=== PATIENT | female | born 1970 | race Caucasian/White ===

== ENCOUNTER 2020-04-05 09:15 | Outpatient (CLI) | payer OTHER, SELFPAY ==
--- NOTE | ~2020-04-05 | MM_ITS ---
EXAMINATION: MM screening [facility] BI w andrew HISTORY: Screening mammogram TECHNIQUE: Craniocaudal and mediolateral oblique 3-D tomosynthesis images were obtained and synthetic 2-D images were generated. CAD analysis was submitted and interpreted. COMPARISON: 03/29/2019, 03/22/2018, 09/30/2015 BREAST PARENCHYMAL COMPOSITION: There are scattered areas of fibroglandular density. FINDINGS: RIGHT BREAST: An asymmetry is again seen in the posterior third of the inner right breast on the cran iocaudal view which is more prominent on the current examination when compared to priors. LEFT BREAST: There is no evidence of suspicious mass, calcification, or architectural distortion to s uggest malignancy. There has been no significant interval change. IMPRESSION: 1. Right breast asymmetry on the craniocaudal view. 2. Additional mammographic views and possible breast ultrasound are recommended. BI-RADS Category 0: Incomplete: Needs additional imaging evaluation. Reviewed, dictated and finalized at location A. IMPRESSION: 1. Right breast asymmetry on the craniocaudal view. 2. Additional mammographic views and possible breast ultrasound are recommended . BI-RADS Category 0: Incomplete: Needs additional imaging evaluation.
== END 2020-04-05 09:16 | disposition home or self-care (01) ==
LOC: ANHIMG 09:23
PROVIDERS: PCP Family Medicine Sports Medicine; Visit Provider Obstetrics & Gynecology
DX: Z12.31 Encounter for screening mammogram for malignant neoplasm of breast (principal)
CPT/HCPCS: 77063; 77067

== ENCOUNTER → 2020-04-26 09:15 | Outpatient (CLI) | payer OTHER, SELFPAY ==
--- NOTE | ~2020-04-26 | MMUS_ITS ---
EXAMINATION: MM diagnostic mammo unilat RT, US breast RT limited HISTORY: Mammographic asymmetry in posterior third of inner right breast on 04/05/2020 screening crani ocaudal view TECHNIQUE: Additional 3-D tomosynthesis images of the right breast were performed and synthetic 2-D i mages were generated. CAD analysis was submitted and interpreted. High resolution upper inner quadran t and lower inner quadrant right breast breast ultrasound was performed. COMPARISON: 04/05/2020 bilateral digital screening mammogram BREAST PARENCHYMAL COMPOSITION: There are scattered areas of fibroglandular density. FINDINGS: MAMMOGRAPHIC FINDINGS: Asymmetric densities in an approximately 3 square cm area are again confirmed in the posterior half o f the inner right breast on craniocaudal projection. Ultrasound correlation for the upper inner and l ower inner quadrants of the right breast was performed. ULTRASOUND: 1:00 5 cm from nipple: There is a focal small irregular hypoechoic antiparallel area with posterior s hadowing, which is suspicious for a small possible malignancy. Ultrasound-guided biopsy is recommende d at this site. IMPRESSION: 1. Focal hypoechoic shadowing irregular antiparallel small focus at 1:00 5 cm from nipple, suspicious for possible malignancy 2. Ultrasound-guided biopsy is recommended at right breast 1:00 5 cm from nipple BI-RADS category 4, suspicious findings. Dr. Hagan telephoned the report and ultrasound guided biopsy on 04/26/2020 at 1025 hours to Nathalie's vo icemail at Dr. Deepa Linn's office Reviewed, dictated and finalized at location A. IMPRESSION: 1. Focal hypoechoic shadowing irregular antiparallel small focus at 1:00 5 cm f rom nipple, suspicious for possible malignancy 2. Ultrasound-guided biopsy is recommended at right breast 1:00 5 cm from nippl e BI-RADS category 4, suspicious findings. Dr. Hagan telephoned the report and ultrasound guided biopsy on 04/26/2020 at 10 25 hours to Nathalie's voicemail at Dr. Deepa Linn's office
== END ==
PROVIDERS: PCP Family Medicine Sports Medicine; Visit Provider Obstetrics & Gynecology
DX: R92.8 Other abnormal and inconclusive findings on diagnostic imaging of breast (principal)
CPT/HCPCS: 76642; 77065

== ENCOUNTER 2020-05-08 09:20 | Outpatient (CLI) | payer OTHER, SELFPAY ==
--- NOTE | ~2020-05-08 | US_ITS ---
US breast RT limited 05/08/2020 10:20 Indication: Focal abnormality identified on recent ultrasound. Biopsy requested. Procedure: High-resolution ultrasound of the right breast. Dr. Seaman was present during the examinatio n. Comparison: 04/26/2020 Findings: There is focal shadowing in the right breast at 1:00, 5 cm from the nipple without discrete mass. This is seen on longitudinal images and is not confirmed on transverse images. No discrete mas s identified for biopsy purposes. Findings discussed with the patient. Impression: 1: No discrete mass identified for biopsy purposes. Focal shadowing located at 1:00, 5 cm from the ni pple as seen on longitudinal images only. Short-term follow-up ultrasound in 6 months recommended. BI-RADS CATEGORY 3-PROBABLY BENIGN FINDING RECOMMENDATION: 6 month follow up recommended. Reviewed, dictated and finalized at location A. D COOK Impression: 1: No discrete mass identified for biopsy purposes. Focal shadowing located at 1:00, 5 cm from the nipple as seen on longitudinal images only. Short-term foll ow-up ultrasound in 6 months recommended. BI-RADS CATEGORY 3-PROBABLY BENIGN FINDING RECOMMENDATION: 6 month follow up recommended.
== END 2020-05-08 09:21 | disposition home or self-care (01) ==
LOC: ANHIMG 09:24
PROVIDERS: PCP Family Medicine Sports Medicine; Visit Provider Obstetrics & Gynecology
DX: N63.10 Unspecified lump in the right breast, unspecified quadrant (principal)
CPT/HCPCS: 76642

== ENCOUNTER 2020-06-04 02:10 | Outpatient (CLI) | payer OTHER, SELFPAY ==
[2020-06-04 19:16] LABS: SARS-CoV-2 RNA PCR Negative
== END 2020-06-04 02:11 | disposition home or self-care (01) ==
LOC: ANHCOVIDDT 02:10
PROVIDERS: PCP Family Medicine Sports Medicine; Visit Provider Obstetrics & Gynecology
DX: Z01.812 Encounter for preprocedural laboratory examination (principal); Z20.828 Contact with and (suspected) exposure to other viral communicable diseases
CPT/HCPCS: 87635; C9803; U0003

== ENCOUNTER 2020-06-04 13:28 | Outpatient (CLI) | payer OTHER, SELFPAY ==
--- NOTE | 2020-06-04 13:30 | ECG_ITS ---
Measurements Intervals [place] Rate: 61 P: -11 IA: 129 QRS: 37 QRSD: 85 T: 57 QT: 429 QTc: 434 Interpretive Statements SINUS RHYTHM NORMAL ECG Electronically Signed On 06-04-2020 15:56:49 STUDIO OPERATIONS MANAGER by Homar Mota D.O.
[2020-06-04 14:58] LABS: Basophils Percent Auto 0.5 % (0.2-1.2); Eosinophils Absolute Auto 0.1 K/mm3 (0-0.3); Eosinophils Percent Auto 1.1 % (0-4.4); Hematocrit 42.4 % (37.0-47.0); Hemoglobin 14.3 g/dL (12.0-15.0); Immature Granulocyte Absolute 0.02 K/mm3 (0.00-0.031); Immature Granulocyte Percent A 0.2 % (0-0.5); Lymphocytes Absolute Auto 2.76 K/mm3 (0.9-3.2); Lymphocytes Percent Auto 31.4 % (18.3-44.2); Mean Corpuscular HGB Conc 33.7 g/dl (32-36); Mean Corpuscular Hemoglobin 32.3 pg (26-34); Mean Corpuscular Volume 95.7 fl (80-100); Mean Platelet Volume 9.7 fl (7.4-10.4); Monocytes Absolute Auto 0.6 K/mm3 (0.1-0.6); Monocytes Percent Auto 6.9 % (2.6-8.5); Neutrophils Absolute Auto 5.3 K/mm3 (1.3-6.7); Neutrophils Percent Auto 59.9 % (45.5-73.1); Platelet Count Result 257 k/mm3 (150-375); Red Blood Count 4.43 M/mm3 (4.2-5.4); Red Cell Distribution Width 12.6 % (11.5-14.5); White Blood Count 8.8 K/mm3 (4.5-10.0)
== END 2020-06-04 13:29 | disposition home or self-care (01) ==
LOC: ANHSURGERY 13:30
PROVIDERS: PCP Family Medicine Sports Medicine; Visit Provider Obstetrics & Gynecology
DX: Z01.812 Encounter for preprocedural laboratory examination (principal); F17.210 Nicotine dependence, cigarettes, uncomplicated
CPT/HCPCS: 36415; 85025; 86850; 86900; 86901; 93005

== ENCOUNTER 2020-06-07 01:33 | Day surgery (SDC) | payer OTHER, SELFPAY ==
[2020-06-03 13:57] VITALS: BMI 29.7
--- NOTE | 2020-06-05 10:00 | PM.IMHP ---
H&P: HPI History of Present Illness Date/Time: 06/05/20 10:00 Chief complaint: Dyspareunia, uterine fibroids, pelvic pain enlarge Narrative: Shiv St is a 49 year old female who is admitted for robotic total vaginal hysterectomy and left salpingo-oophorectomy as well as right salpingectomy. She has pain and discomfort and dyspareunia. She has a huge fibroid on the left she is having clear risks and benefits reviewed including but not exclusive of , aspiration pneumonia bleeding, transfusion, perforation injury to bowel, bladder, ureters, or other internal organs. She voiced good understanding. She had all questions answered. She asked to proceed Review of Systems Review of Systems: All systems reviewed & are unremarkable except as noted in HPI and below PMFSH Social History Social History Smoking packs per day: 1.5 Smoking cigarettes per day: 30.0 Years smoked: 20 Smoking pack-years: 30.00 Smoking status: Current every day smoker Tobacco type: cigarettes Alcohol intake: current Drinks per week: 10 Substance use: never Additional living arrangements comments: Spiritual care concerns: No Meds Home Medications and Allergies Home Medications Medication Instructions Recorded Confirmed Type ascorbic acid (vitamin C) 1 g PO DAILY 06/03/20 06/03/20 History calcium carbonate-vitamin D3 1 tablet PO DAILY 06/03/20 06/03/20 History [Calcium with Vitamin D] fluticasone propionate [Flonase 1 spray INTRANASAL DAILY 06/03/20 06/03/20 History Allergy Relief] herbal drugs [Water Pill] 1 tablet PO DAILY 06/03/20 06/03/20 History lactobacillus combination no.8 3,000 mmu cells PO DAILY 06/03/20 06/03/20 History [Adult Probiotic] loratadine [Claritin] 10 mg PO DAILY 06/03/20 06/03/20 History multivitamin [Multiple Vitamin] 1 tablet PO DAILY 06/03/20 06/03/20 History Allergies Allergy/AdvReac Type Severity Reaction Status Date / Time Sulfa (Sulfonamide Allergy Severe Hives Unverified 06/03/20 13:51 Antibiotics) Exam Const: General: no acute distress Eyes: General: appearance normal, both eyes and all related structures Neck: Neck: supple and no JVD Thyroid: thyroid normal Resp: Effort & Inspection: normal respiratory effort Auscultation: clear to auscultation bilaterally Cardio: Rate: regular rate Rhythm: regular rhythm GI: Inspection: non-distended GI Palp: Yes Soft to palpation, No Tenderness to palpation present (GI) and No Guarding due to palpation present (GI) Auscultation: normal bowel sounds : General: Yes bladder normal to inspection External Female Exam: normal external appearance Speculum Exam - Vagina: normal appearance of the vagina Speculum Exam - Cervix: normal appearance of the cervix Bimanual exam- vagina & uterus: enlarged Bimanual Exam- Adnexa, other: Adnexal mass present on the left Skin: General skin exam: no rashes or lesions noted Extrem: General: normal to inspection and no edema Psych: Mental Status: mental status grossly normal Affect: normal affect Assessment and Plan Additional Plan impression: Enlarged uterus pelvic pain / dyspareunia / uterine fibroids Plan: Robotic total vaginal hysterectomy / left salpingo-oophorectomy / right salpingectomy
[2020-06-07] VITALS (17 sets, daily range): BP systolic 109–150; BP diastolic 46–89; PULSE 52–72; RESP 13–20; TEMP 36.6–37.6; O2SAT 97–100
--- NOTE | 2020-06-07 06:47 | WPDHPUPDATE1 ---
History and Physical Update Update Date/Time: 06/07/20 06:47 History and Physical has been reviewed, including an updated exam of the patient. There are NO changes in the patient's condition. Risks, benefits, and alternatives have been discussed and questions answered. Patient agrees to proceed with procedure.
--- NOTE | 2020-06-07 08:19 | WPDANESEPPF ---
Anes - Initial Pre Proc Eval Procedure: Operation Date: 06/07/20 09:30 Proposed Procedures p Robotic Assisted Total Vaginal Hysterectomy With Left Salpingo-oophorectomy, And Right Salpingectomy - Martni Campbell MD Date/Time: 06/07/20 08:19 Surgeon: Martin Campbell MD Pre Op Diagnosis: Dyspareunia, uterine fibroids, pelvic pain enlarge Patient Data Age: 49 Gender: F Height: 5 ft 5 in Weight: 81 kg Allergies Allergy/AdvReac Type Severity Reaction Status Date / Time Sulfa (Sulfonamide Allergy Severe Hives Unverified 06/07/20 07:34 Antibiotics) Home Medications Medication Instructions Recorded Confirmed Type ascorbic acid (vitamin C) 1 g PO DAILY 06/03/20 06/07/20 History calcium carbonate-vitamin D3 1 tablet PO DAILY 06/03/20 06/07/20 History [Calcium with Vitamin D] fluticasone propionate [Flonase 1 spray INTRANASAL DAILY 06/03/20 06/07/20 History Allergy Relief] herbal drugs [Water Pill] 1 tablet PO DAILY 06/03/20 06/07/20 History lactobacillus combination no.8 3,000 mmu cells PO DAILY 06/03/20 06/07/20 History [Adult Probiotic] loratadine [Claritin] 10 mg PO DAILY 06/03/20 06/07/20 History multivitamin [Multiple Vitamin] 1 tablet PO DAILY 06/03/20 06/07/20 History hydrocodone-acetaminophen [[place]] 1 tablet PO Q4H PRN #30 tablet 06/07/20 Rx Patient hx anesthesia problems: post op nausea/vomiting Family hx anesthesia problems: post op nausea/vomiting PMFSH Social History Social History Smoking packs per day: 1.5 Smoking cigarettes per day: 30.0 Years smoked: 20 Smoking pack-years: 30.00 Smoking status: Current every day smoker Tobacco type: cigarettes Alcohol intake: current Drinks per week: 10 Alcohol use details: 10 BEERS/WEEK Substance use: never Living arrangements: with family Additional living arrangements comments: Spiritual care concerns: No Anes - Eval Final PreProcedure Day of Procedure 06/07/20 08:19 Patient weight: overweight Heart: regular rate and rhythm Lungs: decreased breath sounds Airway: Mallampati scale class II Neurological: alert and oriented Last oral intake: >/= 8 hours ASA classification: III Emergent: no Anesthetic plan: proceed Anesthesia type and monitoring: general ETT and standard monitoring Informed Consent: The patient's anesthetic plan and its attendant risks and benefits were discussed with the patient/family/POA. Questions were solicited and answers provided to the satisfaction of the patient/family/POA.
[2020-06-07] MEDS: LACTATED RINGERS 1,000 ML 30 ML IV CONT ×3 (08:20→11:42)
[2020-06-07] MEDS: KETOROLAC 15 MG/ML VIAL (*BKC) IV PUSH (08:29)
[2020-06-07] MEDS: ACETAMINOPHEN 500 MG TABLET 1000 MG PO (08:30)
[2020-06-07] MEDS: SCOPOLAMINE 1.5 MG PATCH TRANSDERM (08:31)
--- NOTE | 2020-06-07 10:56 | P.OP_ITS ---
Procedure Note - Detailed Date of procedure: 06/07/20 Pre-op diagnosis: Dyspareunia, uterine fibroids, pelvic pain enlarge Surgeon: Martin Campbell MD Postop diagnosis: Dyspareunia/uterine fibroids/pelvic pain/left ovarian cyst Procedure: Robotic total vaginal hysterectomy/left salpingo-oophorectomy/right salpingectomy EBL: 100cc Anesthesia: General endotracheal Findings: Markedly enlarged uterus. Normal-appearing right ovary and tube. Left ovarian cyst Complication: None Description of procedure: The patient was prepped and draped in the normal sterile fashion placed in the dorsal lithotomy position. Under excellent general trach anesthesia weighted speculum placed in posterior fornix of vagina. Anterior lip of the cervix grasped with single-tooth tenaculum. Uterus sounded to 8cm. Serial dilatation with fragmented dilators performed followed passage of the 8. MADINA and the 3. And half cold cup a 16 [place] catheter was placed in the bladder. The remaining instruments removed. Gloves were changed. A supraumbilical incision was made. The Veress needle passed in the abdomen. The 8mm trocar advanced the abdomen downside visualized. No injury seen. The patient was placed in Trendelenburg. Right and left lateral quadrant incision made the 8mm trocars advanced under direct visualization assuring no injury. Right upper quadrant incision made and a 10mm trocar advanced under direct visualization assuring no injury. The robot was docked Attention was turned to the procedure. The left round ligament was clamped, burned, cut. Anterior bladder flap was formed by sharply dissecting this away and pushing it caudally to the opposite round ligament which was clamped, b urned, cut. Next to remove the left ovary and tube the infundibulopelvic structure on the left was skeletonized. This was clamped, burned, cut. This is brought to the level of previously cut round ligament. Removing the right fallopian tube this was sharply dissected using cautery was clamped, burned, cut. The utero-ovarian ligament on the right to conserve the right ovary was clamped, burned, cut. This was brought to the level of previously cut round ligament. The left cardinal and broad ligaments were then serially skeletonized. These were clamped, burned, cut and brought down to the level of the uterine vessels on the left. Uterine vessels were large and tortuous. These were individually clamped, burned, cut. In like fashion the right cardinal and broad ligaments were serially skeletonized. These were clamped, burned, cut and brought down the lateral edge of the uterus until the uterine vessels could be seen. These were then clamped, cut and good blanching the uterus was seen. Colpotomy incision was made and the uterus tubes and left ovary removed through the vagina. Blood loss estimated [id number] at that point. The vagina was closed with continuous running 0V lock from lateral edge to lateral edge and back to the midline. Irrigation undertaken until clear. Hemostasis was assured. The robot was undocked. The gas removed from the abdomen. The trocar sites removed and the incisions closed with 4 O Monocryl and glue. The patient was awakened. She went to recovery in satisfactory condition. All sponge, needle, instrument counts were correct. There were no immediate complications
[2020-06-07] MEDS: fentaNYL CITRATE INJ (*CRX) 100 MCG/2 ML VIAL 25 MCG IV PUSH ×2 (12:00→12:02)
--- NOTE | 2020-06-07 12:30 | PC.NURSE ---
PT arrived on unit via bed and was taken to room 280. PT accompanied by significant other. PT introductions made and plan of care discussed per post op menagerie superintendent surgery, pain management, daily care activities. PT oriented to room and surrounding area. PT verbalized understanding of such care
[2020-06-07] MEDS: NICOTINE (*PBKC) 21 MG PATCH 1 PATCH TRANSDERM (13:00)
[2020-06-07] MEDS: HYDROcodone/acetaminophen (*CRX) 5-325 MG TABLET 1 TAB PO ×3 (13:34→20:21)
[2020-06-07] MEDS: SIMETHICONE 80 MG TAB.CHEW PO ×4 (13:34→23:55)
[2020-06-07] MEDS: KETOROLAC 30 MG/ML VIAL (*BKC) IV PUSH (13:35)
[2020-06-07] MEDS: DOCUSATE SODIUM 100 MG CAPSULE PO (17:27)
[2020-06-07] MEDS: IBUPROFEN 600 MG TABLET PO (20:20)
[2020-06-07] MEDS: HYDROcodone/acetaminophen (*CRX) 10-325 MG TABLET 1 TAB PO (23:55)
[2020-06-08] MEDS: SIMETHICONE 80 MG TAB.CHEW PO ×2 (04:27→09:41)
[2020-06-08] MEDS: IBUPROFEN 600 MG TABLET PO (04:27)
[2020-06-08 04:30] VITALS: BP 134/70; PULSE 65; RESP 16; TEMP 36.6; O2SAT 99
[2020-06-08] MEDS: BISACODYL 10 MG SUPPOSITORY (05:00)
[2020-06-08 05:21] LABS: Basophils Percent Auto 0.2 % (0.2-1.2); Eosinophils Percent Auto 0.1 % (0-4.4); Hematocrit 33.7 % (37.0-47.0); Hemoglobin 11.7 g/dL (12.0-15.0); Immature Granulocyte Absolute 0.04 K/mm3 (0.00-0.031); Immature Granulocyte Percent A 0.3 % (0-0.5); Lymphocytes Absolute Auto 2.22 K/mm3 (0.9-3.2); Lymphocytes Percent Auto 15.4 % (18.3-44.2); Mean Corpuscular HGB Conc 34.7 g/dl (32-36); Mean Corpuscular Hemoglobin 31.8 pg (26-34); Mean Corpuscular Volume 91.6 fl (80-100); Mean Platelet Volume 10.5 fl (7.4-10.4); Monocytes Absolute Auto 0.8 K/mm3 (0.1-0.6); Monocytes Percent Auto 5.7 % (2.6-8.5); Neutrophils Absolute Auto 11.3 K/mm3 (1.3-6.7); Neutrophils Percent Auto 78.3 % (45.5-73.1); Platelet Count Result 202 k/mm3 (150-375); Red Blood Count 3.68 M/mm3 (4.2-5.4); Red Cell Distribution Width 11.8 % (11.5-14.5); White Blood Count 14.5 K/mm3 (4.5-10.0)
[2020-06-08 09:30] VITALS: PULSE 65; RESP 16; O2SAT 96
[2020-06-08] MEDS: HYDROcodone/acetaminophen (*CRX) 10-325 MG TABLET 1 TAB PO (09:40)
[2020-06-08] MEDS: DOCUSATE SODIUM 100 MG CAPSULE PO (09:41)
[2020-06-08] MEDS: ENOXAPARIN 40 MG/0.4 ML SYRINGE SUB-Q (09:41)
[2020-06-08 10:03] VITALS: BP 104/62; PULSE 65; RESP 14; TEMP 36.7; O2SAT 96
--- NOTE | 2020-06-08 10:21 | PM.DS ---
DS: Admitting Diagnosis Admitting Diagnosis Admitting Diagnosis: Dyspareunia, uterine fibroids, pelvic pain enlarge DS: Summary Hospital Course Hospital Course: Shiv St was admitted after robotic assisted total laparoscopic hysterectomy, left salpingo-oophorectomy and right salpingectomy for dyspareunia, uterine fibroids, and pelvic pain. The above procedure was performed with no complications. She is doing well post op. She states her pain is well controlled with PO medications. She reports minimal bleeding. She is ambulating up to the chair. Her muller catheter was removed. She is tolerating PO without N/V. She reports passing flatus. Status at Discharge Overall status at discharge: patient is progressing back to baseline Time Spent with Patient Time attestation: Total time spent providing and/or coordinating discharge services: Time spent: Less than 30 minutes Exam Const: General: comfortable and no acute distress Limitations: no limitations Resp: Effort & Inspection: normal respiratory effort Auscultation: clear to auscultation bilaterally Cardio: Rate: regular rate Rhythm: regular rhythm GI: Inspection: non-distended GI Palp: Yes Soft to palpation, Yes Tenderness to palpation present (GI) (milder tenderness to deep palpation) and No Guarding due to palpation present (GI) Auscultation: normal bowel sounds Other: incisions C/D/I covered with dermabond Urinary Catheter: Urinary Catheter: urine clear Skin: General skin exam: normal color Extrem: General: normal to inspection Psych: Mental Status: mental status grossly normal Affect: normal affect DS: Data Data Completed and Pending Pending studies at discharge: Pending at discharge 06/07/20 10:36 Surgical [PTH] Routine Labs on day of discharge: Labs from last 24 hours 06/08/20 04:36 WBC 14.5 H RBC 3.68 L Hgb 11.7 L Hct 33.7 L MCV 91.6 MCH 31.8 MCHC 34.7 RDW 11.8 Plt Count 202 MPV 10.5 H Immature Gran % (Auto) 0.3 Neut % (Auto) 78.3 H Lymph % (Auto) 15.4 L [place] % (Auto) 5.7 Eos % (Auto) 0.1 Baso % (Auto) 0.2 Lymph # (Auto) 2.22 [place] # (Auto) 0.8 H Eos # (Auto) 0.0 Baso # (Auto) 0.0 Abs Immat Gran (auto) 0.04 H Absolute Neuts (auto) 11.3 H Absolute Nucleated RBC 0.0 Nucleated RBC % 0.0 Discharge Plan Discharge Patient Disposition: Home, Self-Care Discharge Instructions: Remove the Scopolamine patch that was placed behind your ear in 72 hours or less. Wash your hands after touching. Patient Instructions: How to Use an Incentive Spirometer (DC), Laparoscopic Hysterectomy (DC) Stand Alone Forms: General Discharge Instructions Follow-up/Referrals: Martin Campbell MD [Physician] - Discharge Medications: New hydrocodone-acetaminophen [[place]] 5-325 mg tablet 1 tablet PO Q4H PRN (Reason: pain) Qty: 30 RF: 0 nicotine [Nicoderm CQ] 21 mg/24 hr Patch 24 Hour 1 patch transdermal QAM Qty: 30 RF: 0 Continued multivitamin Tablet 1 tablet PO DAILY RF: 0 ascorbic acid (vitamin C) 1,000 mg Tablet 1 g PO DAILY RF: 0 calcium carbonate-vitamin D3 [Calcium with Vitamin D] 600 mg(1,500mg) -400 unit Tablet 1 tablet PO DAILY RF: 0 Adult Probiotic 3 billion cell Capsule 3,000 mmu cells PO DAILY RF: 0 herbal drugs Tablet 1 tablet PO DAILY RF: 0 fluticasone propionate [Flonase Allergy Relief] 50 mcg/actuation Avenue,Suspension 1 spray INTRANASAL DAILY RF: 0 loratadine [Claritin] 10 mg Tablet 10 mg PO DAILY RF: 0
== END 2020-06-08 11:35 | disposition home or self-care (01) ==
LOC: ANHSURGERY 12:10 → ANHOB2 13:15
PROVIDERS: PCP Family Medicine Sports Medicine; Visit Provider Obstetrics & Gynecology
PROC: (CPT 58552; principal; 2020-06-07 09:30)
DX: N94.10 Unspecified dyspareunia (principal); R10.2 Pelvic and perineal pain; D25.1 Intramural leiomyoma of uterus; N83.02 Follicular cyst of left ovary; F17.210 Nicotine dependence, cigarettes, uncomplicated
CPT/HCPCS: 58552; S2900; 36415; 85025; 86850; 86900; 86901; 87635; 88307; 93005; 99199; A9270; C9803; J0330; J1100; J1650; J1885; J2250; J2405; J2704; J3010; J7030; J7120; U0003

== ENCOUNTER 2020-11-13 13:29 | Outpatient (CLI) | payer OTHER, SELFPAY ==
--- NOTE | ~2020-11-13 | US_ITS ---
EXAMINATION: US breast RT limited HISTORY: Six-month follow-up for probably benign right breast mass TECHNIQUE: Limited right breast ultrasound is performed. COMPARISON: 05/08/2020, 04/26/2020, 04/05/2020 FINDINGS: There is no evidence of focal abnormal cystic or solid mass in the vicinity of the mass que stioned on prior ultrasound examination. IMPRESSION: No persistent sonographically detected mass in the upper outer breast. Routine screening mammography is recommended. BI-RADS Category 1: Negative Reviewed, dictated and finalized at location A.
== END 2020-11-13 13:30 | disposition home or self-care (01) ==
PROVIDERS: PCP Family Medicine Sports Medicine; Visit Provider Obstetrics & Gynecology
DX: R92.8 Other abnormal and inconclusive findings on diagnostic imaging of breast (principal)
CPT/HCPCS: 76642

== ENCOUNTER 2021-08-19 08:33 | Emergency (ER) | payer OTHER, SELFPAY ==
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
[2021-08-19 08:40] VITALS: BP 148/99; PULSE 71; RESP 18; TEMP 36.8; O2SAT 100
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
[2021-08-19 09:48] VITALS: BP 141/93; PULSE 87; RESP 18; O2SAT 100
[2021-08-19 10:07] VITALS: BP 132/92; PULSE 57; RESP 16; O2SAT 100
[2021-08-19 10:09] VITALS: BP 136/89; PULSE 61; RESP 18; O2SAT 100
== END 2021-08-19 10:10 | disposition home or self-care (01) ==
PROVIDERS: Emergency Provider Emergency Medicine; PCP Family Medicine Sports Medicine
DX: S09.93XA Unspecified injury of face, initial encounter (principal); S00.81XA Abrasion of other part of head, initial encounter; F17.210 Nicotine dependence, cigarettes, uncomplicated
CPT/HCPCS: 70450; 99284

== ENCOUNTER 2021-12-11 09:38 | Outpatient (CLI) | payer OTHER, SELFPAY ==
--- NOTE | ~2021-12-11 | XR_ITS ---
EXAMINATION: XR chest 2V 12/11/2021 10:00 INDICATION: History of tobacco use PROCEDURE: 2 view chest COMPARISON: No prior studies for comparison. FINDINGS: The lungs are clear. The cardiomediastinal silhouette is within normal limits. There are no pleural effusions. There is no pneumothorax suspected. There are surgical changes of right clavi cular osteotomy. IMPRESSION: 1: NO ACUTE CARDIOPULMONARY DISEASE. Reviewed, dictated and finalized at location B.
== END 2021-12-11 09:39 | disposition home or self-care (01) ==
PROVIDERS: PCP Emergency Medicine; Visit Provider Emergency Medicine
DX: Z12.2 Encounter for screening for malignant neoplasm of respiratory organs (principal); Z87.891 Personal history of nicotine dependence
CPT/HCPCS: 71046

== ENCOUNTER 2022-01-14 07:42 | Outpatient (CLI) | payer OTHER, SELFPAY ==
--- NOTE | ~2022-01-14 | MM_ITS ---
EXAMINATION: MM screening [facility] BI w andrew HISTORY: Screening mammogram TECHNIQUE: Craniocaudal and mediolateral oblique 3-D tomosynthesis images were obtained and synthetic 2-D images were generated. CAD analysis was submitted and interpreted. COMPARISON: 04/26/2020, 04/05/2020, 03/29/2019 BREAST PARENCHYMAL COMPOSITION: There are scattered areas of fibroglandular density. FINDINGS: There is no suspicious mass, calcification, or architectural distortion to suggest malignan cy in either breast. There has been no suspicious interval change. IMPRESSION: 1. No mammographic evidence of malignancy. 2. Recommend routine screening mammography in one year. BI-RADS Category 1: Negative Reviewed, dictated and finalized at location A.
== END 2022-01-14 07:43 | disposition home or self-care (01) ==
LOC: ANHIMG 07:44
PROVIDERS: PCP Emergency Medicine; Visit Provider Obstetrics & Gynecology
DX: Z12.31 Encounter for screening mammogram for malignant neoplasm of breast (principal)
CPT/HCPCS: 77063; 77067

== ENCOUNTER 2022-12-19 09:48 | Emergency (ER) | payer OTHER, SELFPAY ==
[2022-12-19 09:55] VITALS: BP 134/76; PULSE 75; RESP 14; TEMP 36.9; O2SAT 100
--- NOTE | 2022-12-19 10:05 | ED.FEMALEGU ---
HPI - Female Genitourinary General Chief complaint: Urogenital-Female Stated complaint: UTI Source: patient and RN notes reviewed History of Present Illness HPI Narrative: 52-year-old female presents urgent care with complaints of UTI symptoms since last night. Patient states this started out with a foul odor her urine and then middle night it started with burning, urinary urgency, and urinary frequency. Patient did take a Pyridium bowel earlier this morning. Patient reports chills earlier. Denies any abnormal back pain, abdominal pain, vomiting, or fevers. Related Data Home Medications Medication Instructions Recorded Confirmed ascorbic acid (vitamin C) 1,000 mg 1 g PO DAILY 06/03/20 12/19/22 tablet calcium carbonate 600 mg-vitamin 1 tablet PO DAILY 06/03/20 12/19/22 D3 10 mcg (400 unit) tablet (Calcium with Vitamin D) fluticasone propionate 50 1 spray intranasal DAILY 06/03/20 12/19/22 mcg/actuation nasal spray,suspension (Flonase Allergy Relief) herbal drugs 1 tablet PO DAILY 06/03/20 12/19/22 lactobacillus combination no.8 3 3,000 mmu cells PO DAILY 06/03/20 12/19/22 billion cell capsule (Adult Probiotic) loratadine 10 mg tablet (Claritin) 10 mg PO DAILY 06/03/20 12/19/22 multivitamin 1 tablet PO DAILY 06/03/20 12/19/22 levocetirizine 5 mg tablet 5 mg PO DAILY 12/19/22 12/19/22 pantoprazole 40 mg tablet,delayed 40 mg PO DAILY 12/19/22 12/19/22 release phentermine 37.5 mg tablet 37.5 mg PO DAILY 12/19/22 12/19/22 Allergies Allergy/AdvReac Type Severity Reaction Status Date / Time Sulfa (Sulfonamide Allergy Severe Hives Verified 12/19/22 09:53 Antibiotics) Review of Systems Review of Systems: CONSTITUTIONAL: Denies fever, chills, or sweats. EYES: Denies visual changes, redness, or discharge. ENT: Denies otalgia and sore throat CARDIOVASCULAR: Denies chest pain, palpitations, or edema. RESPIRATORY: Denies cough or dyspnea. GASTROINTESTINAL: Denies abdominal pain, nausea, vomiting, or diarrhea. GENITOURINARY: Dysuria SKIN: Denies rash or itching. MUSCULOSKELETAL: Denies back pain, joint pain, or myalgia. NEUROLOGIC: Denies headache, numbness, or weakness. Pertinent positives per HPI. [facility] Past Medical History Medical History (Updated 12/19/22 @ 10:14 by Rosey Huber, SHARON) Chronic right hip pain Left hip pain Trochanteric bursitis Surgical History Surgical History History of bilateral breast reduction surgery History of section complicating History of partial hysterectomy Social History Social History (Updated 08/29/21 @ 11:21 by Loida Goldsmith, RT(R)) Smoking packs per day: 1.5 Smoking cigarettes per day: 30.0 Years smoked: 20 Smoking pack-years: 30.00 Smoking status: Current every day smoker Tobacco type: cigarettes Alcohol intake: current Drinks per week: 5 Alcohol use details: 10 BEERS/WEEK Substance use: never Living arrangements: with family Additional living arrangements comments: Spiritual care concerns: No Comments At the time of my signature, I reviewed and agree with the nursing past medical, surgical, social, and family history. There is no relevant family history pertinent to the patient complaint. Exam Narrative: GENERAL: This is a well-nourished, well-developed patient, in no apparent distress. HEAD: normocephalic, atraumatic. EYES: Sclera clear/white. Vision is grossly intact. EARS: External ears normal, auditory canals clear and without drainage. Hearing grossly intact. NOSE: External nose normal with no obvious nasal discharge, nares without redness, no rhinorrhea. THROAT: Mucous membranes moist, posterior pharynx clear. NECK: Neck supple, non-tender without lymphadenopathy, masses or thyromegaly. CARDIOVASCULAR: Regular rate and rhythm without murmurs, gallops, or rubs. RESPIRATORY: Clear to auscultation. Breath soun
== END 2022-12-19 10:17 | disposition home or self-care (01) ==
PROVIDERS: Emergency Provider Nurse Practitioner Family; PCP Nurse Practitioner Family
DX: N39.0 Urinary tract infection, site not specified (principal); F17.210 Nicotine dependence, cigarettes, uncomplicated
CPT/HCPCS: 81003; 87077; 87086; 87186; 99213; G0463

== ENCOUNTER 2022-12-26 10:58 | Emergency (ER) | payer OTHER, SELFPAY ==
[2022-12-26 11:17] VITALS: BP 127/81; PULSE 82; RESP 16; TEMP 37; O2SAT 100
--- NOTE | 2022-12-26 11:33 | ED.FEMALEGU ---
HPI - Female Genitourinary General Chief complaint: Urogenital-Female Stated complaint: urinary issue Time Seen by Provider: 12/26/22 11:25 Source: patient, RN notes reviewed and old records reviewed (previous UC visit and urine culture results.) Mode of arrival: ambulatory Limitations: no limitations History of Present Illness HPI Narrative: Patient presents today complaining of dysuria, urinary frequency, and lower abdominal pressure since last night. She was seen at [facility] 1 week ago, diagnosed with the UTI and placed on 5 days of Macrobid. Subsequent urine culture shows growth of E coli. Patient states her symptoms did resolve, but returned again last night. She did take it dose of azo at 8:00 a.m. this morning with some relief. Related Data Home Medications Medication Instructions Recorded Confirmed ascorbic acid (vitamin C) 1,000 mg 1 g PO DAILY 06/03/20 12/26/22 tablet calcium carbonate 600 mg-vitamin 1 tablet PO DAILY 06/03/20 12/26/22 D3 10 mcg (400 unit) tablet (Calcium with Vitamin D) fluticasone propionate 50 1 spray intranasal DAILY 06/03/20 12/26/22 mcg/actuation nasal spray,suspension (Flonase Allergy Relief) herbal drugs 1 tablet PO DAILY 06/03/20 12/26/22 lactobacillus combination no.8 3 3,000 mmu cells PO DAILY 06/03/20 12/26/22 billion cell capsule (Adult Probiotic) loratadine 10 mg tablet (Claritin) 10 mg PO DAILY 06/03/20 12/26/22 multivitamin 1 tablet PO DAILY 06/03/20 12/26/22 levocetirizine 5 mg tablet 5 mg PO DAILY 12/19/22 12/26/22 pantoprazole 40 mg tablet,delayed 40 mg PO DAILY 12/19/22 12/26/22 release phentermine 37.5 mg tablet 37.5 mg PO DAILY 12/19/22 12/26/22 Allergies Allergy/AdvReac Type Severity Reaction Status Date / Time Sulfa (Sulfonamide Allergy Severe Hives Verified 12/26/22 11:21 Antibiotics) Review of Systems Review of Systems: CONSTITUTIONAL: Denies body aches, fever, chills, or sweats. EYES: Denies visual changes, redness, or discharge. ENT: Denies rhinorrhea, congestion, sore throat, or otalgia. CARDIOVASCULAR: Denies chest pain, palpitations, or edema. RESPIRATORY: Denies cough or dyspnea. GASTROINTESTINAL: Denies abdominal pain, nausea, vomiting, or diarrhea. GENITOURINARY: + dysuria, frequency, lower abdominal pressure SKIN: Denies rash, itching, or wounds. MUSCULOSKELETAL: Denies back pain, joint pain, or myalgia. NEUROLOGIC: Denies headache, numbness, tingling, or weakness. PSYCH: Denies depression or anxiety. [facility] Past Medical History Medical History Chronic right hip pain Left hip pain Trochanteric bursitis Surgical History Surgical History History of bilateral breast reduction surgery History of section complicating History of partial hysterectomy Social History Social History Smoking packs per day: 1.5 Smoking cigarettes per day: 30.0 Years smoked: 20 Smoking pack-years: 30.00 Smoking status: Current every day smoker Tobacco type: cigarettes Alcohol intake: current Drinks per week: 5 Alcohol use details: 10 BEERS/WEEK Substance use: never Living arrangements: with family Additional living arrangements comments: Spiritual care concerns: No Comments At time of signature, I have reviewed and agree with nursing past medical, surgical, social and family history unless otherwise noted. Please see nursing chart for further information. There is no relevant family history pertinent to the presenting complaint Exam Narrative: GENERAL: Well-appearing, well-nourished, and in no acute distress. HEAD: Normocephalic, atraumatic. EYES: EOMI. No redness or drainage. Conjunctivae normal. ENT: Mucous membranes pink and moist. NECK: Normal AROM. CHEST: No respiratory distress.
== END 2022-12-26 11:41 | disposition home or self-care (01) ==
PROVIDERS: Emergency Provider Nurse Practitioner; PCP Nurse Practitioner Family
DX: N30.01 Acute cystitis with hematuria (principal); F17.210 Nicotine dependence, cigarettes, uncomplicated
CPT/HCPCS: 81003; 87077; 87086; 87088; 87186; 99213; G0463

== ENCOUNTER 2023-03-12 09:07 | Outpatient (CLI) | payer OTHER, SELFPAY ==
--- NOTE | ~2023-03-12 | MM_ITS ---
EXAMINATION: MM screening [facility] BI w andrew HISTORY: Screening mammogram TECHNIQUE: Craniocaudal and mediolateral oblique 3-D tomosynthesis images were obtained and synthetic 2-D images were generated. CAD analysis was submitted and interpreted. COMPARISON: 01/14/2022 bilateral screening mammogram 11/13/2020 Limited right breast ultrasound 05/2020 limited right breast ultrasound 04/26/2020 diagnostic right mammogram and limited right breast ultrasound examination 04/05/2020 bilateral screening mammogram BREAST PARENCHYMAL COMPOSITION: There are scattered areas of fibroglandular density. FINDINGS: Stable fibroglandular asymmetry. Scattered bilateral benign microcalcifications. There is n o evidence of suspicious mass, calcification, or architectural distortion to suggest malignancy in ei ther breast. There has been no suspicious interval change. IMPRESSION: 1. No mammographic evidence of malignancy. 2. Recommend routine screening mammography in one year. BI-RADS Category 2: Benign finding(s). Reviewed, dictated and finalized at location A.
== END 2023-03-12 09:08 | disposition home or self-care (01) ==
PROVIDERS: PCP Nurse Practitioner Family; Visit Provider Obstetrics & Gynecology
DX: Z12.31 Encounter for screening mammogram for malignant neoplasm of breast (principal)
CPT/HCPCS: 77063; 77067

== ENCOUNTER 2024-03-31 08:56 | Outpatient (CLI) | payer OTHER, SELFPAY ==
--- NOTE | ~2024-03-31 | MM_ITS ---
EXAMINATION: MM screening [facility] BI w andrew HISTORY: Screening TECHNIQUE: Craniocaudal and mediolateral oblique 3-D tomosynthesis images were obtained and synthetic 2-D images were generated. CAD analysis was submitted and interpreted. COMPARISON: Comparison to multiple prior studies sequentially, with oldest reviewed study dated 03/22. BREAST PARENCHYMAL COMPOSITION: Not dense: There are scattered areas of fibroglandular density. FINDINGS: There is no evidence of suspicious mass, calcification, or architectural distortion to sugg est malignancy in either breast. There has been no suspicious interval change. IMPRESSION: 1. No mammographic evidence of malignancy. 2. Recommend routine screening mammography in one year. BI-RADS Category 1: Negative Reviewed, dictated and finalized at location B.
== END 2024-03-31 08:57 | disposition home or self-care (01) ==
LOC: ANHIMG 08:58
PROVIDERS: PCP Nurse Practitioner Family; Visit Provider Obstetrics & Gynecology
DX: Z12.31 Encounter for screening mammogram for malignant neoplasm of breast (principal)
CPT/HCPCS: 77063; 77067

== ENCOUNTER 2025-05-03 08:46 | Outpatient (CLI) | payer OTHER, SELFPAY ==
--- NOTE | ~2025-05-03 | MM_ITS ---
EXAMINATION: MM screening [facility] BI w andrew HISTORY: Screening TECHNIQUE: Craniocaudal and mediolateral oblique 3-D tomosynthesis images were obtained and synthetic 2-D images were generated. CAD analysis was submitted and interpreted. COMPARISON: Comparison to multiple prior studies sequentially, with oldest reviewed study dated 03/29/2019. BREAST PARENCHYMAL COMPOSITION: Not dense: There are scattered areas of fibroglandular density. FINDINGS: There is no evidence of suspicious mass, calcification, or architectural distortion to suggest malignancy in either breast. There has been no suspicious interval change. IMPRESSION: 1. No mammographic evidence of malignancy. 2. Recommend routine screening mammography in one year. BI-RADS Category 1: Negative Reviewed, dictated and finalized at location B.
--- OUTSIDE RECORDS SUMMARY | 2025-05-03 09:07 | XMS_ITS | Clinical Summary ---
Author Organization [facility] Address [address] [place] [phone] Phone Care Team Providers Care Pharmacy Clerk Name Role Phone Casandra Mayes NP Primary Care Provider [phone] Allergies Active Allergy Reactions Criticality Noted Date Comments Ciprofloxacin Urticaria Medium 08/30/2017 Sulfa (Sulfonamide Antibiotics) Hives Medium 09/[address] (PROTONIX) 40 mg EC tablet 08/04/2022 Active nitrofurantoin monohydrate (MACROBID) 100 mg capsuleIndicatio ns:Urinary Tract/Genitourin bess Infection Take 1 capsule (100 mg total) by mouth daily 90 capsule 1 01/12/2023 Active estradioL (ESTRACE) 1 mg tablet Take 2 tablets (2 mg total) by mouth daily 02/09/2023 Active levocetirizine (XYZAL) 5 mg tabletIndication s:Seasonal allergies TAKE 1 TABLET(5 MG) BY MOUTH DAILY 90 tablet 1 01/24/2025 Active estrogens-methyl TESTOSTERone (EEMT,COVARYX) 0.625-1.25 mg per tablet Take 1 tablet by mouth daily 01/29/2025 Active varenicline tartrate (CHANTIX) 1 mg tabletIndication s:Smoking Cessation Take 1 tablet (1 mg total) by mouth 2 (two) times a day Take with full glass of water. 180 tablet 1 03/09/2025 05/08/20 25 Active Active Problems Problem Noted Date Diagnosed Date Frequent UTI 01/12/2023 Seasonal allergies 11/12/2022 BMI 31.0-31.9,adult 10/02/2022 Assessment & Plan (02/09/2025 8:20 AM CDT): Discussed the patients BMI: The BMI is above average BMI management is complete. BMI follow-up includes: Nutrition Counseling and education provided Assessment & Plan (01/31/2024 9:30 AM CDT): Discussed the patients BMI: The BMI is above average BMI management is complete. BMI follow-up includes: Nutrition Counseling and education provided Assessment & Plan (11/12/2022 9:40 AM CDT): Discussed the patients BMI: The BMI is above average BMI management is complete. BMI follow-up includes: Nutrition Counseling and education provided Assessment & Plan (10/02/2022 2:20 PM CDT): BMI Follow-up includes: Discussed diet and exercising counseling. Physical exam, annual 09/24/2022 Weight gain 09/24/2022 Resolved Problems Problem Noted Date Diagnosed Date Resolved Date BMI 29.0-29.9,adult 01/12/2023 01/31/20 24 BMI 32.0-32.9,adult 09/24/2022 11/13/19 23 Encounters Date Type Department Care Team Description 03/09/2025 Telephone [facility] [address] [place] [address] [place] [phone] Casandra Mayes NP 02/09/2025 7:30 AM CDT Office Visit [facility] [address] [place] [address] [address] [place] [address] Casandra Mayes NP Physical exam, annual (Primary Dx); BMI 31.0-31.9,adult; Other tobacco product nicotine dependence, uncomplicated 02/01/2025 Orders Only [facility] [address] [place] [address] Road [address] [place] [address] Casandra Mayes, OLEGARIO Hyperlipidemia, unspecified hyperlipidemia type (Primary Dx); BMI 30.0-30.9,adult; Other fatigue from Last 3 Months Immunizations Immunization Administration Dates Next Due COVID-19 MRNA (MODERNA) .5 M L (50 MCG) VACCINE (12 YEARS AND UP) 04/03/2024 Influenza, Quadrivalent, Rec ombinant, Egg Free, Preservative Free, Intramuscular 03/30/2020 Influenza, Quadrivalent, Spl it, Preservative Free, Intramuscular 05/17/2023,05/08/2022,04/17/2021,04/27 Influenza, Trivalent, IM (MDV) 05/03/2017 Influenza, Unspecified 04/03/2024,2022(Deferred: Patient Refused) Tdap 09/24/2022 ZOSTER Recombinant 06/16/2021,04/06/2021 Surgical History Surgery Date Site/Laterality Comments HYSTERECTOMY REDUCTION MAMMAPLASTY Medical History Medical History Date Comments Allergic Colon polyp Bacterial infection due to H. pylori Family History Medical History Relation Name Comments Heart attack Brother No Known Problems Father hep c Mother Suicide Completion Sister Relation Name Status Comments Brother Father Alive Mother Sister Social History Tobacco Use Types Packs/Day Years Used Date Smoking Tobacco: Former Cigarettes Smokeless Tobacco: Current Tobacco Cessation:Ready to Q uit: Not Asked; Counseling Given: Not Answered AUDIT-C Answer Date Recorded Q1: How often do you have a drink containing alc ohol? Monthly or less 02/09/2025 Q2: How many drinks containi ng alcohol do you have on a typical day when you are drinking? 1 or 2 02/09/2025 Q3: How often do you have si x or more drinks on one occasion? Never 02/09/2025 PHQ-2 Answer Date Recorded PHQ-2 Total Score (If total score is 3 or more points, staff should administer the PHQ-9) 0 02/09/2025 Comments Unknown Sex and Gender Information Value Date Recorded Sex Assigned at Not on file Legal Sex Female 2:39 PM CDT Gender Identity Female 10/19/2022 10:57 AM CDT Sexual Orientation Not on file Obstetrics History Last Filed Vital Signs Vital Sign Reading Time Taken Comments Blood Pressure 138/86 02/09/2025 8:10 AM CDT Pulse 79 02/09/2025 8:10 AM CDT Temperature 37.1 C (98.7 F) 02/09/2025 8:10 AM CDT Respiratory Rate - - Oxygen Saturation 98% 02/09/2025 8:10 AM CDT Inhaled Oxygen Concentration - - Weight 83 kg (183 lb) 02/09/2025 8:10 AM CDT Height 162.6 cm (5' 4) 02/09/2025 8:10 AM CDT Body Mass Index 31.41 02/09/2025 8:10 AM CDT Plan of Treatment Health Maintenance Due Date Last Done Comments Hepatitis C Screening 1970 Hepatitis B Screening 1988 Influenza Vaccine (#1) 2025 , 05/17/2023, 05/08/2022, Additional history exists Breast Cancer Screening-Mammogram 03/31/2025 03/31/2024, 03/12/2023 Depression Screening 02/09/2026 02/09/2025, 01/31/2024, 08/02/2023, Additional history exists Regular Well Visit/Exam 18-64 02/09/2026 02/09/2025, 01/31/2024, 09/24/2022 Colon Cancer Screening-Colonoscopy 02/01/2027 02/01/2022 DTaP/Tdap/Td Vaccine (2 - Td or Tdap) 09/24/2032 09/24/2022 Zoster Vaccine Completed 06/16/2021, 04/06/2021 Cervical Cancer Screening Discontinued 12/07/2022 Covid-19 Vaccine Completed 04/03/2024, 10/2021, 01/11/2022, Additional history exists Pneumococcal vaccine <65 Aged Out No longer eligible based on patient's age to complete this topic Procedures Procedure Name Priority Date/Time Associated Diagnosis Comments LIPID PANEL Routine 02/05/2025 7:22 AM CDT Hyperlipidemia, unspecified hyperlipidemia type TSH Routine 02/05/2025 7:22 AM CDT BMI 30.0-30.9,adult Other fatigue COMPREHENSIVE METABOLIC PANEL Routine 02/05/2025 7:22 AM CDT Hyperlipidemia, unspecified hyperlipidemia type Other fatigue from Last 3 Months Results * TSH (02/05/2025 7:22 AM CDT) Pathologist [facility] TSH 1.93 mIU/L [facility] Comment: Reference Range > or = 20 Years 0.40-4.50 Ranges First trimester 0.26-2.66 Second trimester 0.55-2.73 Third trimester 0.43-2.91 Blood 02/05/2025 7:22 AM CDT 02/05/2025 7:23 AM CDT Narrative [facility] - 02/05/2025 6:00 PM CDT FASTING:YES FASTING: YES Casandra Mayes AUTOMOTIVE PAINT TECHNICIAN LAB BLOOD ORDERABLES Final Re sult [facility] [address] [place] [address] * (ABNORMAL) Lipid panel (02/05/2025 7:22 AM CDT) [facility] Cholesterol 218(H) <200 mg/dL [facility] HDL 57 > OR = 50 mg/dL [facility] Triglycerides 94 <150 mg/dL [facility] LDL 141(H) mg/dL (calc) [facility] Comment: Reference range: <100 Desirable range <100 mg/dL for primary prevention; <70 mg/dL for patients with CHD or diabetic patients with > or = 2 CHD risk factors. LDL-C is now calculated using the Uri-Pradip calculation, which is a validated novel method providing better accuracy than the Friedewald equation in the estimation of LDL-C. Uri POWER et al. SARAH. 2013;310(19): 0661-7735 (http://education.Lovely/faq/ADO257) Chol/HDL ratio 3.8 <5.0 (calc) [facility] Non-HDL, (LDL+VLDL) 161(H) <130 mg/dL (calc) [facility] Comment: For patients with diabetes plus 1 major ASCVD risk factor, treating to a non-HDL-C goal of <100 mg/dL (LDL-C of <70 mg/dL) is considered a therapeutic option. Blood 02/05/2025 7:22 AM CDT 02/05/2025 7:23 AM CDT Narrative [facility] - 02/05/2025 6:00 PM CDT FASTING:YES FASTING: YES us Casandra Mayes AUTOMOTIVE PAINT TECHNICIAN LAB BLOOD ORDERABLES Final Re sult [facility] [address] [place] [address] * Comprehensive metabolic panel (02/05/2025 7:22 AM CDT) Pathologist [facility] Glucose 82 65 - 99 mg/dL [facility] Comment: Fasting reference interval BUN 15 7 - 25 mg/dL [facility] Creatinine 0.60 0.50 - 1.03 mg/dL [facility] eGFR 107 > OR = 60 mL/min/1.7 3m2 [facility] BUN/creat ratio SEE NOTE: (calc) [facility] Comment: Not Reported: BUN and Creatinine are within reference range. Sodium 140 135 - 146 mmol/L [facility] Potassium, pl 4.5 3.5 - 5.3 mmol/L [facility] Chloride 104 98 - 110 mmol/L [facility] CO2 32 20 - 32 mmol/L [facility] Calcium 9.0 8.6 - 10.4 mg/dL [facility] Protein, sr 6.3 6.1 - 8.1 g/dL [facility] Albumin 4.1 3.6 - 5.1 g/dL [facility] GLOBULIN 2.2 1.9 - 3.7 g/dL (calc) [facility] Alb/glob ratio 1.9 1.0 - 2.5 (calc) [facility] Bilirubin, total 0.3 0.2 - 1.2 mg/dL [facility] Alk phos 52 37 - 153 U/L [facility] AST 15 10 - 35 U/L [facility] ALT (SGPT) 12 6 - 29 U/L [facility] Blood 02/05/2025 7:22 AM CDT 02/05/2025 7:23 AM CDT Narrative [facility] - 02/05/2025 6:00 PM CDT FASTING:YES FASTING: YES us Casandra Mayes AUTOMOTIVE PAINT TECHNICIAN LAB BLOOD ORDERABLES Final Re sult [facility] [address] [place] [address] from Last 3 Months [id number] [place] [address] [facility] CMR Care Teams Pharmacy Clerk Relationship Specialty Start Date End Date Casandra Mayes NP [address] [facility] [address] [place], [place] [id number] PCP - General Internal Medicine 09/24/22
== END 2025-05-03 08:47 | disposition home or self-care (01) ==
LOC: ANHFOHIMG 08:49
PROVIDERS: PCP Nurse Practitioner Family; Visit Provider Obstetrics & Gynecology
DX: Z12.31 Encounter for screening mammogram for malignant neoplasm of breast (principal)
CPT/HCPCS: 77063; 77067